=== PATIENT | male | born 1990 | race Caucasian/White ===

== ENCOUNTER 2022-01-02 16:10 | Emergency (ER) | payer SELFPAY ==
[~2022-01-02 16:10] MED LIST: Sodium Chloride 0.9% 1,000 ML BAG ONE
[2022-01-02 18:25] LABS: Hemoglobin 16.2 g/dL (14.0-18.0); Mean Corpuscular HGB CONC 31.7 g/dL (32.0-36.0); Mean Corpuscular Hemoglobin 26.9 pg (27.0-31.0); Mean Corpuscular Volume 84.8 fL (78.0-98.0); Mean Platelet Volume 10.8 fL (7.4-10.4); Platelet Count 244 thou/uL (130-400); Red Blood Cell (RBC) Count 6.03 mill/uL (4.70-6.10); White Blood Cell (WBC) Count 21.5 thou/uL (4.8-10.8)
[2022-01-02 18:26] LABS: #Basophils 0.2 thou/uL (0.0-0.2); #Eosinphils 0.1 thou/uL (0.0-0.7); #Lymphocytes 1.7 thou/uL (1.20-3.40); #Monocytes 1.5 thou/uL (0.11-0.59); %Basophils 0.8 % (0.0-1.0); %Eosinophils 0.4 % (0.0-10.0); %Lymphocytes 8.1 % (21.0-51.0); %Neutrophils 83.8 % (42.0-75.0)
[2022-01-02 18:30] LABS: Acetaminophen Less than 10.0 mcg/mL (10.0-30.0); CK (CPK) 544 U/L (30-200)
[2022-01-02 18:31] LABS: Alcohol Less than 10 mg/dL (Less than 10); Anion Gap 26 mmol/L (10-20); Carbon Dioxide 23 mmol/L (22-29); Chloride 96 mmol/L (98-107); Potassium 4.4 mmol/L (3.5-5.1); Salicylate Less than 8.0 mg/dL (15.0-30.0); Sodium 141 mmol/L (136-145)
[2022-01-02 18:32] LABS: BUN (Urea Nitrogen) 26 mg/dL (8.9-20.6); Calc. Creatinine Clearance 0 mL/min (70-130); Glucose 131 mg/dL (70-105)
[2022-01-02 18:33] LABS: ALT (SGPT) 51 U/L (8-55); AST (SGOT) 43 U/L (5-34); Albumin 5.6 g/dL (3.5-5.0); Alkaline Phosphatase 112 U/L (40-110); Calcium 10.8 mg/dL (7.8-10.44); Magnesium 2.7 mg/dL (1.6-2.6); Protein, Total 9.6 g/dL (6.0-8.3)
[2022-01-02 20:47] LABS: Bilirubin Small (Negative); Blood, Urine Small (Negative); Clarity Slightly Cloudy (Clear); Glucose, Urine (Dipstick) Negative (Negative); Ketone, Urine Negative (Negative); Leukocyte Negative (Negative); Nitrite Negative (Negative); Protein, Urine (Dipstick) 100 mg/dL (Neg-Trace); Specific Gravity, Urine 1.025 (1.005-1.030); Urobilinogen 0.2 mg/dL (Less than 2)
[2022-01-02 20:57] LABS: Amphetamine Not Detected (NotDetected); Barbiturates Screen Not Detected (NotDetected); Benzodiazepine Screen Not Detected (NotDetected); Cocaine Metabolite Screen Not Detected (NotDetected); Medtox Control Line Valid? VALID (VALID); Methadone Not Detected (NotDetected); Methamphetamine Not Detected (NotDetected); Opiate Screen Not Detected (NotDetected); Oxycodone Screen Not Detected (NotDetected); Phencyclidine (PCP) Not Detected (NotDetected); THC/Cannabinoid Screen Detected (NotDetected); Tricyclic Screen Not Detected (NotDetected)
[2022-01-02 20:58] LABS: Bacteria/HPF Rare-Few HPF (None Seen); Mucous/LPF 3+ LPF (<2+); RBC/HPF 0-3 HPF (0-3); Squamous Epithelial 0-3 HPF (0-3)
== END 2022-01-02 20:44 | disposition short-term general hospital (02) ==
LOC: MADERS 16:10
DX: T67.5XXA Heat exhaustion, unspecified, initial encounter (principal); E86.0 Dehydration; N17.9 Acute kidney failure, unspecified; E87.2 Acidosis; M62.82 Rhabdomyolysis; Z79.899 Other long term (current) drug therapy
CPT/HCPCS: 71045; 80053; 80306; 80307; 81003; 81015; 82550; 83605; 83735; 84484; 85025; 93005; J7050